=== PATIENT | female | born 1995 | race Caucasian/White ===

== ENCOUNTER → 2019-01-12 08:32 | Outpatient (CLI) | payer BC, SELFPAY ==
[2019-01-11 16:35] VITALS: BMI 34.7
[2019-01-11 20:22] LABS: Chlamydia Trachomatis by PCR Negative (Negative); Neisserai gonorrhoeae by PCR Negative (Negative); Probe Check PASS; Sample Adequacy Control PASS; Specimen Processing Control PASS
[2019-01-17 12:20] LABS: HPV Reflexed? NOT INDICATED
== END ==
PROVIDERS: Visit Provider Obstetrics & Gynecology
DX: Z12.4 Encounter for screening for malignant neoplasm of cervix (principal); Z34.80 Encounter for supervision of other normal pregnancy, unspecified trimester
CPT/HCPCS: 87086; 87088; 87491; 87591; 88175; G0145

== ENCOUNTER → 2019-01-14 14:42 | Outpatient (CLI) | payer BC, SELFPAY ==
[2019-01-11 16:35] VITALS: BMI 34.7
--- NOTE | 2019-01-14 14:48 | US_ITS ---
STUDY: THYROID ULTRASOUND REASON FOR EXAM: Female, 23 years old. Thyromegaly TECHNIQUE: Ultrasound evaluation of the thyroid was performed with real-time and static berry-scale imaging. COMPARISON: None. FINDINGS: RIGHT LOBE: The right lobe of the thyroid gland measures 4.6 x 1.4 x 1.8 cm. There is a homogeneous echotexture. There are no demonstrated solid, cystic or complex lesions. LEFT LOBE: The left lobe of the thyroid gland measures 4.4 x 1.6 x 1.3 cm. There is a homogeneous echotexture. There are no demonstrated solid, cystic or complex lesions. ISTHMUS: The isthmus measures 0.3 cm. The regional lymph nodes are normal. US/Thyroid IMPRESSION: Enlarged thyroid gland. Electronically Signed: Rosalina Montoya MD at 16:04 EDT Tel , Service support ,
== END ==
PROVIDERS: Referring Provider Obstetrics & Gynecology; Visit Provider Obstetrics & Gynecology
DX: E01.0 Iodine-deficiency related diffuse (endemic) goiter (principal)
CPT/HCPCS: 76536

== ENCOUNTER → 2019-01-17 11:48 | Outpatient (CLI) | payer BC, SELFPAY ==
[2019-01-11 16:35] VITALS: BMI 34.7
[2019-01-17 12:15] LABS: Absolute Lymphocyte Count 1.45 X10^3/uL (0.83-4.51); Absolute Neutrophil Count 4.3 X10^3/uL (2.0-7.7); Basophil# 0.02 X10^3/uL; Basophil% 0.3 % (0-1); Eosinophil# 0.07 X10^3/uL; Eosinophils% 1.1 % (0-5); Hematocrit 38.1 % (37-47); Hemoglobin 12.4 g/dL (12.0-15.0); Lymphocyte # 1.45 X10^3/ul (4.0); Lymphocyte % 23.4 % (19-41); Mean Corp Hgb Conc 32.5 g/dL (32-36); Mean Corpuscular Hgb 30.5 pg (27.0-32.0); Mean Corpuscular Volume 93.8 fL (81-99); Mean Platelet Vol. 9.1 fl (6.2-12.0); Monocyte# 0.38 X10^3/uL; Monocyte% 6.1 % (0-10); NRBC Flagged by Analyzer 0 % (0-5); Neutrophil # 4.26 X10^3/uL (2.7-7.7); Neutrophil % 68.8 % (47-70); Platelet Count 245 K/mm3 (150-450); RBC Distribution Width CV 14.1 % (11.6-14.6); RBC Distribution Width SD 49.1 fl (35.1-43.9); Red Blood Count 4.06 M/mm3 (4.2-5.4); White Blood Count 6.2 K/mm3 (4.4-11.0)
[2019-01-17 12:45] LABS: Glucose Challenge Gest 1H 50g 83 mg/dL (70-140); T4 Free Direct 0.91 ng/dL (0.76-1.46); Thyroid Stim Hormone (TSH) 1.51 uIU/mL (0.358-3.74)
[2019-01-17 13:29] LABS: HIV - WCH Non-Reactive (Nonreactive); Rubella IgG 64.4 IU/mL
[2019-01-21 02:39] LABS: Rapid Plasmin Reagin (RPR) NONREACTIVE (NONREACTIVE)
== END ==
PROVIDERS: Referring Provider Obstetrics & Gynecology; Visit Provider Obstetrics & Gynecology
DX: O99.280 Endocrine, nutritional and metabolic diseases complicating pregnancy, unspecified trimester (principal); E01.0 Iodine-deficiency related diffuse (endemic) goiter; Z3A.00 Weeks of gestation of pregnancy not specified
CPT/HCPCS: 36415; 82950; 84439; 84443; 85025; 86592; 86703; 86762; 86850; 86900; 86901

== ENCOUNTER → 2019-02-07 14:57 | Outpatient (CLI) | payer BC, SELFPAY ==
[2019-02-07 14:44] VITALS: BMI 34.7
== END ==
PROVIDERS: Referring Provider Obstetrics & Gynecology; Visit Provider Obstetrics & Gynecology
DX: Z34.81 Encounter for supervision of other normal pregnancy, first trimester (principal)
CPT/HCPCS: 36415

== ENCOUNTER → 2019-03-09 13:32 | Outpatient (CLI) | payer BC, SELFPAY ==
[2019-03-09 13:11] VITALS: BMI 34.7
[2019-03-10 10:37] LABS: Hepatitis B Surface Antigen Non-Reactive (Nonreactive)
== END ==
PROVIDERS: Referring Provider Obstetrics & Gynecology; Visit Provider Obstetrics & Gynecology
DX: Z34.80 Encounter for supervision of other normal pregnancy, unspecified trimester (principal); Z36.9 Encounter for antenatal screening, unspecified
CPT/HCPCS: 36415; 87340

== ENCOUNTER 2019-05-03 11:22 | Outpatient (CLI) | payer BC, SELFPAY ==
[2019-04-06 14:13] VITALS: BMI 34.7
[2019-05-03 11:35] VITALS: BMI 42.0
[2019-05-03 12:00] LABS: Hematocrit 30.4 % (37-47); Hemoglobin 10.1 g/dL (12.0-15.0); Mean Corp Hgb Conc 33.2 g/dL (32-36); Mean Corpuscular Hgb 30.9 pg (27.0-32.0); Mean Platelet Vol. 9.1 fl (6.2-12.0); Platelet Count 221 K/mm3 (150-450); RBC Distribution Width CV 13.6 % (11.6-14.6); RBC Distribution Width SD 46.5 fl (35.1-43.9); Red Blood Count 3.27 M/mm3 (4.2-5.4); White Blood Count 7.2 K/mm3 (4.4-11.0)
[2019-05-03 12:11] LABS: Fibrinogen 562 mg/dl (203-444)
--- NOTE | 2019-05-06 09:21 | OB.TRI.PN ---
Progress Notes Date of Service: 05/03/19 Progress Note: patient pinned by cow at home, no fall, minimal trauma no pain, no ctx no vb good fm. fht present and toco no contractions a/p abdominal trauma dc home labor and kick count precautions Laboratory Studies: Laboratory Tests 05/03/19 05/03/19 Range/Units 11:45 11:45 WBC 7.2 (4.4-11.0) K/mm3 RBC 3.27 L (4.2-5.4) M/mm3 Hgb 10.1 L (12.0-15.0) g/dL Hct 30.4 L (37-47) % MCV 93.0 (81-99) fL MCH 30.9 (27.0-32.0) pg MCHC 33.2 (32-36) g/dL RDW Std Deviation 46.5 H (35.1-43.9) fl RDW Coeff of Frandy 13.6 (11.6-14.6) % Plt Count 221 (150-450) K/mm3 MPV 9.1 (6.2-12.0) fl Fibrinogen 562 H (203-444) mg/dl Multi Select Codes - Urinary/Genital Urinary/Genital CPT Codes: Other Procedure See Report - no charge report visit
== END 2019-05-03 12:28 | disposition home or self-care (01) ==
LOC: WPOUT 11:27 → OBT 11:28
PROVIDERS: Referring Provider Obstetrics & Gynecology; Visit Provider Obstetrics & Gynecology
DX: O9A.219 Injury, poisoning and certain other consequences of external causes complicating pregnancy, unspecified trimester (principal); S39.91XA Unspecified injury of abdomen, initial encounter; W23.0XXA Caught, crushed, jammed, or pinched between moving objects, initial encounter; Y93.K9 Activity, other involving animal care; Y92.9 Unspecified place or not applicable; Y99.9 Unspecified external cause status
CPT/HCPCS: 36415; 59025; 59050; 85027; 85384; 99218; G0378

== ENCOUNTER → 2019-06-01 11:52 | Outpatient (CLI) | payer BC, SELFPAY ==
[2019-06-01 11:29] VITALS: BMI 42.0
[2019-06-01 13:06] LABS: Absolute Lymphocyte Count 1.16 X10^3/uL (0.83-4.51); Basophil# 0.01 X10^3/uL; Basophil% 0.2 % (0-1); Eosinophil# 0.07 X10^3/uL; Eosinophils% 1.1 % (0-5); Hematocrit 32.4 % (37-47); Hemoglobin 10.5 g/dL (12.0-15.0); Lymphocyte # 1.16 X10^3/ul (4.0); Lymphocyte % 17.9 % (19-41); Mean Corp Hgb Conc 32.4 g/dL (32-36); Mean Corpuscular Hgb 30.1 pg (27.0-32.0); Mean Corpuscular Volume 92.8 fL (81-99); Mean Platelet Vol. 9.5 fl (6.2-12.0); Monocyte# 0.25 X10^3/uL; Monocyte% 3.9 % (0-10); NRBC Flagged by Analyzer 0 % (0-5); Neutrophil # 4.95 X10^3/uL (2.7-7.7); Neutrophil % 76.1 % (47-70); Platelet Count 239 K/mm3 (150-450); RBC Distribution Width CV 13.2 % (11.6-14.6); RBC Distribution Width SD 44.9 fl (35.1-43.9); Red Blood Count 3.49 M/mm3 (4.2-5.4); White Blood Count 6.5 K/mm3 (4.4-11.0)
[2019-06-01 13:18] LABS: Glucose Challenge Gest 1H 50g 118 mg/dL (70-140)
[2019-06-01 14:16] LABS: Hepatitis C Antibody Non-Reactive (Nonreactive)
== END ==
PROVIDERS: Referring Provider Nurse Practitioner Women's Health; Visit Provider Nurse Practitioner Women's Health
DX: Z34.80 Encounter for supervision of other normal pregnancy, unspecified trimester (principal)
CPT/HCPCS: 36415; 82950; 85025; 86803

== ENCOUNTER → 2019-07-19 | Outpatient (CLI) | payer BC, SELFPAY ==
[2019-07-13 11:46] VITALS: BMI 42.0
--- NOTE | 2019-07-19 14:01 | US_ITS ---
STUDY: SECOND AND THIRD TRIMESTER OBSTETRICAL ULTRASOUND - LIMITED REASON FOR EXAM: Female, 23 years old GROWTH -- UT SIZE/ DATE DISCREPANCY -- BACK PAIN, ANEMIA, OBESITY AFFECTING LMP: April 04, 2019. PRIOR ULTRASOUND: None. TECHNIQUE: Transabdominal TECHNICAL QUALITY: Adequate. FINDINGS: There is a single intrauterine fetus. The fetus is in a cephalic presentation. There is demonstrated cardiac activity with a heart rate of 146 bpm. There is a normal amniotic fluid volume. The largest amniotic fluid pocket measures 6.1 cm x 11 cm. The amniotic fluid index (MAIKOL) is 18.4 cm. The placenta is posterior in location and is not low lying. There are Grade 1 placental changes. The cervix was not assessed due to the head positioning. BIOMETRY: BPD: 8.76 cm: 35 weeks, 2 days HC: 32.1 cm: 37 weeks, 1 days AC: 33.8 cm: 37 weeks, 4 days FL: 6.96 cm: 35 weeks, 5 days Age by LMP: 35 weeks, 4 days. BETY by LMP: August 19, 2019. age by prior US: 36 weeks, 3 days. BETY by prior US: August 13, 2019. age by current US: 36 weeks, 5 days. BETY by current US: August 11, 2019. Estimated weight: 3065 grams, +/- 454 grams, 81 percentile. US/OB Limited With Biometrics IMPRESSION: Single live uterine gestation with a mean gestational age of 36 weeks and 3 days. Measurement today fall within normal expected range. Electronically Signed: Chadwick Hinton, at 15:50 EDT , Service support ,
== END | disposition home or self-care (01) ==
LOC: OPUS 14:01
PROVIDERS: Referring Provider Obstetrics & Gynecology; Visit Provider Obstetrics & Gynecology
DX: O26.849 Uterine size-date discrepancy, unspecified trimester (principal); Z3A.00 Weeks of gestation of pregnancy not specified
CPT/HCPCS: 76816

== ENCOUNTER → 2019-07-27 14:46 | Outpatient (CLI) | payer BC, SELFPAY ==
[2019-07-27 11:19] VITALS: BMI 42.0
== END ==
PROVIDERS: Referring Provider Obstetrics & Gynecology; Visit Provider Obstetrics & Gynecology
DX: Z34.93 Encounter for supervision of normal pregnancy, unspecified, third trimester (principal); Z3A.36 36 weeks gestation of pregnancy
CPT/HCPCS: 87081

== ENCOUNTER 2019-08-05 10:00 | Outpatient (CLI) | payer BC, SELFPAY ==
[2019-08-03 11:31] VITALS: BMI 42.0
[2019-08-05 10:13] VITALS: TEMP 37; O2SAT 100
[2019-08-05 10:16] VITALS: BP 107/63; PULSE 90
[2019-08-05 10:23] VITALS: BMI 46.6
--- NOTE | 2019-08-06 07:32 | OB.TRI.PN ---
Progress Notes Date of Service: 08/05/19 Progress Note: false labor cat I tracing fht 130 moderate variability reactive no decels toco irregular ctx false labor dc home reactive nst labor precautions Multi Select Codes - Urinary/Genital Urinary/Genital CPT Codes: 40552-93 non-stress test Interp
== END 2019-08-05 11:15 | disposition home or self-care (01) ==
LOC: WPOUT 10:07 → OBT 10:08
PROVIDERS: Referring Provider Obstetrics & Gynecology; Visit Provider Obstetrics & Gynecology
DX: O47.9 False labor, unspecified (principal); Z3A.00 Weeks of gestation of pregnancy not specified
CPT/HCPCS: 59025; 99218; G0378

== ENCOUNTER 2019-08-10 21:45 | Outpatient (CLI) | payer BC, SELFPAY ==
[2019-08-10 14:29] VITALS: BMI 46.6
[2019-08-10 22:09] VITALS: BP 116/71; PULSE 80; PULSE 90; TEMP 36.6; O2SAT 82; O2SAT 98
[2019-08-10 22:16] VITALS: BMI 47.0
--- NOTE | 2019-08-11 17:03 | OB.TRI.PN ---
Progress Notes Date of Service: 08/10/19 Progress Note: seen for false labor no cervical change fht 140 moderate variability cat I tracing no decels toco irregular ctx Multi Select Codes - Urinary/Genital Urinary/Genital CPT Codes: 17331-83 non-stress test Interp
== END 2019-08-10 22:55 | disposition home or self-care (01) ==
LOC: WPOUT 21:52 → WP 21:52
PROVIDERS: Visit Provider Obstetrics & Gynecology
DX: O47.9 False labor, unspecified (principal); Z3A.00 Weeks of gestation of pregnancy not specified
CPT/HCPCS: 59025; 59050; 99218; G0378

== ENCOUNTER 2019-08-12 19:50 | Inpatient (IN) | payer BC, SELFPAY ==
[2019-08-12] VITALS (7 sets, daily range): BP systolic 112–120; BP diastolic 58–66; PULSE 67–89; TEMP 36.3–36.6; O2SAT 98–99; BMI 47.4
[2019-08-12] MEDS: Lactated Ringers 1,000 ML 50 ML IV (20:30)
[2019-08-12 20:47] LABS: Absolute Lymphocyte Count 1.52 X10^3/uL (0.83-4.51); Absolute Neutrophil Count 5.5 X10^3/uL (2.0-7.7); Basophil# 0.01 X10^3/uL; Basophil% 0.1 % (0-1); Eosinophil# 0.15 X10^3/uL; Hematocrit 30.2 % (37-47); Hemoglobin 9.6 g/dL (12.0-15.0); Lymphocyte # 1.52 X10^3/ul (4.0); Lymphocyte % 20.2 % (19-41); Mean Corp Hgb Conc 31.8 g/dL (32-36); Mean Corpuscular Hgb 27.5 pg (27.0-32.0); Mean Corpuscular Volume 86.5 fL (81-99); Mean Platelet Vol. 10.2 fl (6.2-12.0); Monocyte# 0.33 X10^3/uL; Monocyte% 4.4 % (0-10); NRBC Flagged by Analyzer 0 % (0-5); Neutrophil # 5.47 X10^3/uL (2.7-7.7); Neutrophil % 72.9 % (47-70); POSITIVE MORPHOLOGY YES; Platelet Count 215 K/mm3 (150-450); RBC Distribution Width SD 43.7 fl (35.1-43.9); Red Blood Count 3.49 M/mm3 (4.2-5.4); White Blood Count 7.5 K/mm3 (4.4-11.0)
[2019-08-12 20:53] LABS: Differential Indicated SCAN CRITERIA MET
[2019-08-12] MEDS: Oxytocin 30 units/NS 500 ml 30 UNITS/500 ML IV.SOLN IV (21:00)
[2019-08-12 21:17] LABS: Differential Comment SCANNED; Ovalocyte RARE; Platelet Estimate ADEQUATE (ADEQ)
[2019-08-13] VITALS (44 sets, daily range): BP systolic 86–116; BP diastolic 52–79; PULSE 50–139; RESP 16; TEMP 36.1–36.9; O2SAT 98–100
[2019-08-13] MEDS: Lactated Ringers 1,000 ML 200 ML IV (01:20)
[2019-08-13] MEDS: Lactated Ringers 500 ML 999 ML IV (01:26)
[2019-08-13] MEDS: fentaNYL-bupivacaine (epidural) 100 ML BAG EPIDURAL (02:20)
[2019-08-13] MEDS: Ondansetron 4 MG/2 ML Vial IV (02:31)
--- NOTE | 2019-08-13 05:08 | HP.PCM_ITS ---
- Problem List (1) Contraception management Status: Acute Comment: nexplanon 6 wk pp(had previously) (2) Back pain affecting Status: Acute Qualifiers: Comment: chiropractor, rx flexeril. Declines PT (3) Anemia affecting Status: Acute Qualifiers: Comment: Iron QD (4) Influenza vaccination declined Status: Acute Comment: declined on 02/07/19 (5) Thyromegaly Status: Acute Comment: us no nodules, PCP fu and labs wnl (6) Obesity affecting Status: Acute Qualifiers: Comment: encouraged healthy weight gain (7) Supervision of other normal Status: Acute Comment: PRR gender surprise PC: Eric BETY: 08/19/19 Spouse: Federico (8) Status: Acute Qualifiers: Comment: Genetic-low risk. AFP negative; Declines carrier, normal anatomy History Date of Admission: 08/12/19 Final BETY: 08/19/19 Gestational age: 39 Weeks and 1 Days History of this : This is a 23 year-old, at 39 weeks gestational age presents for IOL secondary to obesity. she denies any vaginal bleeding or loss of fluid, has had irregular contractions and has been 4 cm dilated. Medical History: Medical History (Last Reviewed 08/10/19 @ 14:29 by Sue Conley) No pertinent past medical history Z78.9 Surgical History: Surgical History (Last Reviewed 08/10/19 @ 14:29 by Sue Conley) H/O wisdom tooth extraction K08.409 History of ankle surgery Z98.890 History of appendectomy Z90.49 Allergies No Known Allergies Allergy (Verified 08/12/19 21:23) Home Medications: Home Medications multivitamin no.47-iron fum 27 mg-folate no.1 1 mg-dha 300 mg capsule 1 cap PO DAILY cap 01/11/19 Smoking Status: Never smoker Alcohol: None Number of Fetus(es): 1 NST - FHR Rate Baby A Baseline: 130 Variability:: Moderate Accelerations:: 15 x 15 Decelerations:: None NST Reactive:: Yes FHR Category:: Category I Uterine Activity:: irregular History Past Pregnancies: Past Pregnancies previous term uncomplicated Labs: Mom's Labs & Results 08/12/19 08/12/19 20:34 20:34 WBC 7.5 RBC 3.49 L Hgb 9.6 L Hct 30.2 L MCV 86.5 MCH 27.5 MCHC 31.8 L RDW Std Deviation 43.7 RDW Coeff of Frandy 14.0 Plt Count 215 MPV 10.2 Immature Gran % (Auto) 0.400 Neut % (Auto) 72.9 H Lymph % (Auto) 20.2 Clinch % (Auto) 4.4 Eos % (Auto) 2.0 Baso % (Auto) 0.1 Absolute Neuts (auto) 5.5 Absolute Lymphs (auto) 1.52 Nucleated RBC % 0 Differential Comment SCANNED Platelet Estimate ADEQUATE Ovalocytes RARE Blood Type A POSITIVE Antibody Screen NEGATIVE Course Did the patient receive Yes care? Labs RH: POSITIVE RPR/VDRL/Syphilis Nonreactive Rubella status Immune HbSAg Negative Date Done: 03/19/19 Chlamydia Negative Gonorrhea Negative HIV/AIDS Non-Reactive Group B Strep: Negative Current Obstetrical History Gestational Diabetes No Incompetent Cervix No Infertility No IUGR No Macrosomia No Hypertension/Pre-eclampsia No Placenta Previa/Abruption No PTL/PROM No Uterine anomaly No Oligohydramnios No Polyhydramnios No Multiple gestation No Past Medical History Asthma No Diabetes No Hypertension No Heart disease No Mitral valve prolapse No Neurologic/Seizure disorder/ No Migraines Kidney disease No Liver disease No Varicosities No Clotting disorders/Hx of DVT No Thyroid Dysfunction No Other medical diseases No Psychiatric disorders No Major trauma No Abnormal PAP smear No Sleep apnea No Mammogram in the last 2 years No Social History Marital Status: Alleged father Federico Tang Hx Smoking No Smoking Status Never smoker Expected Delivery Method: Spontaneous Vaginal Review of Systems Constitutional: Denies: Fever, Malaise Eyes: Denies: Blurred vision, Vision Change HEENT: Denies: Head Aches, Visual Changes Cardiovascular: Denies: Chest Pain, Palpitations Respiratory: Denies: Cough, Shortness of Breath, Wheezing Gastrointestinal: Denies: Abdominal Pain, Diarrhea, Nausea, Vomiting Genitourinary: Denies: Dysuria, Hematuria Musculoskeletal: Denies: Joint Pain, Muscle pain Skin: Denies: Lesions, Rash Neurological: Denies: Blurred vision, Focal weakness, Headaches Psychiatric: Denies: Anxiety, Depression Endocrine: Denies: Heat/ Cold Intolerance Hematologic/ Lymphatic: Denies: Easy Bruising, Easy Bleeding Physical Exam Vitals: Vital Signs Temp Pulse BP Pulse Ox 97.1 F L 68 102/62 100 08/13/19 04:55 08/13/19 04:55 08/13/19 04:54 08/13/19 04:55 General: Alert, Cooperative, No apparent distress HEENT: Atraumatic, Normocephalic. Negative for: Thyromegaly, Lymphadenopathy Cardiovascular: Regular rate Lungs: Normal air movement Abdomen: Soft, Non Tender, Gravid Neurological: Deep Tendon Reflexes 2+/4 and Symmetrical, Neuro grossly intact. Negative for: Clonus PROJECT MANAGEMENT SPECIALIST: Normal external genitalia. Negative for: Vulvar lesions Estimated gestational size: Appropriate for gestational size Presentation: Cephalic Cervix Dilation (cm): 4 Station: -1 Effacement (%): 80 Assessment/Plan All Active Problems (Last Reviewed 08/10/19 @ 14:29 by Sue Conley) Contraception management (Acute) Back pain affecting (Acute) Anemia affecting (Acute) Influenza vaccination declined (Acute) Thyromegaly (Acute) Obesity affecting (Acute) Supervision of other normal (Acute) (Acute) This is a 23 year-old, at 39 weeks gestational age presents for IOL secondary to obesity plan pitocin IOL srom clear fluid epidural gbs neg.
[2019-08-13] MEDS: Oxytocin 30 units/NS 500 ml 30 UNITS/500 ML IV.SOLN 334 UNITS IV (06:20)
--- NOTE | 2019-08-13 06:24 | PCM.OPRPT ---
Problem List (1) Contraception management Status: Acute Comment: nexplanon 6 wk pp(had previously) (2) Back pain affecting Status: Acute Qualifiers: Comment: chiropractor, rx flexeril. Declines PT (3) Anemia affecting Status: Acute Qualifiers: Comment: Iron QD (4) Influenza vaccination declined Status: Acute Comment: declined on 02/07/19 (5) Thyromegaly Status: Acute Comment: us no nodules, PCP fu and labs wnl (6) Obesity affecting Status: Acute Qualifiers: Comment: encouraged healthy weight gain (7) Supervision of other normal Status: Acute Comment: PRR gender surprise PC: Eric BETY: 08/19/19 Spouse: Federico (8) Status: Acute Qualifiers: Comment: Genetic-low risk. AFP negative; Declines carrier, normal anatomy Vaginal Delivery Maternal Presentation: Medically Indicated Induction iol obesity Method of Induction: Pitocin Amniotic Membrane Rupture Type: Spontaneous Amniotic Fluid Description: Clear Final BETY: 08/19/19 Gestational age: 39 Weeks and 1 Days Date of Procedure: 08/13/19 Pre-Operative Diagnosis: iol obesity Post-Operative Diagnosis: same Surgery/ Procedure Performed: Spontaneous Vaginal Delivery Type of Anesthesia: Epidural Description of Procedure: Patient began pushing and delivered the head in the ABNER presentation. The head was delivered atraumatically. The anterior and posterior shoulders delivered without complication followed by the rest of the infant and the infant was placed on the maternal abdomen. Delayed cord clamping was employed for approximately 60 seconds. Cord was clamped and cut and gentle traction was applied to the cord and the placenta delivered spontaneously immediately following it was noted to be intact with three-vessel cord. The perineum and vagina were inspected and noted to have no laceration. EBL was 100 cc. Patient and infant tolerated delivery well. Presentation: ABNER Placental Delivery Description: Spontaneous Cord Entanglement: None Estimated Blood Loss: 100 Infant A gender: Male (1 minute): 8 (5 minute): 9 Episiotomy Description: None Laceration: None Medications given after delivery: IV Pitocin Complications: None Multi Select Codes - Urinary/Genital Urinary/Genital CPT Codes: 43188 Vaginal Delivery [facility]
[2019-08-13] MEDS: Acetaminophen 500 MG Tablet 1000 MG PO ×2 (07:38→16:36)
[2019-08-13] MEDS: Naproxen 250 MG Tablet 500 MG PO (23:20)
[2019-08-14 04:00] VITALS: BP 107/61; PULSE 68; RESP 16; TEMP 36.7
[2019-08-14] MEDS: Etonogestrel 68 MG IMPLANT SQ (06:42)
--- NOTE | 2019-08-14 06:48 | NURSING ---
Nexplanon inserted to [facility] per Dr Allen. Patient signed consent and tolerated procedure well. Discussing discharge at this time. Tyler Ruggiero RN at bedside
[2019-08-14] MEDS: Prenatal Vits Tablet 1 TABLET PO (07:43)
[2019-08-14] MEDS: Naproxen 250 MG Tablet 500 MG PO (07:43)
[2019-08-14 07:45] VITALS: BP 102/55; PULSE 60; RESP 18; TEMP 36.6; O2SAT 98
--- NOTE | 2019-08-14 11:05 | PCM.PN.OB ---
Subjective: doing well no complaints pain controlled no CP SOB N V ambulating well tolerating po lochia moderate, going well - Physical Exam Vitals/I&O's: Vital Signs Temp Pulse Resp BP Pulse Ox 97.8 F 60 18 102/55 L 98 08/14/19 07:45 08/14/19 07:45 08/14/19 07:45 08/14/19 07:45 08/14/19 07:45 Oxygen Delivery Method Room Air Weight: 294 lb Body Mass Index (BMI) 47.4 Intake and Output for Last 24 Hours 08/12/19 08/13/19 08/14/19 23:59 23:59 23:59 Intake Total 99.11 / 99.11 2701.67 / 2701.67 Output Total 1150 / 1150 Balance 99.11 / -100.89 1551.67 / 1551.67 Current Medications Acetaminophen (Tylenol) 1,000 mg PO Q8H PRN PRN PRN Reason: Pain Score 1-3/10 Last Admin: 08/13/19 16:36 Dose: 1,000 mg Documented by: Bisacodyl (Dulcolax) 10 mg RECTAL UD PRN PRN Reason: If no BM Dibucaine (Dibucaine) 1 applic TOPICAL TID PRN PRN; Protocol PRN Reason: Discomfort Hydrocortisone (Hytone) 1 applic TOPICAL TID PRN PRN; Protocol PRN Reason: Discomfort Methylergonovine Maleate (Methergine) 0.2 mg IM X1 PRN PRN Reason: Excess bleeding/uterine atony Naproxen (Naprosyn) 500 mg PO Q8H PRN PRN PRN Reason: Pain Score 1-3/10 Last Admin: 08/14/19 07:43 Dose: 500 mg Documented by: Ondansetron HCl (Zofran) 4 mg IV Q4H PRN PRN PRN Reason: Nausea Oxycodone HCl (Oxyir) 5 - 10 mg PO Q4H PRN PRN PRN Reason: Pain Score 4-10/10 Multivit/Folic Acid/Iron (Prenatabs Fa) 1 tablet PO DAILY@1200 DOMONIQUE Last Admin: 08/14/19 07:43 Dose: 1 tablet Documented by: Senna/Docusate Sodium (Senokot-S, Elise-Colace) 1 - 2 tablet PO DAILY PRN PRN PRN Reason: Constipation Simethicone (Mylicon) 80 mg PO PCHS PRN PRN Reason: Indigestion/Stomach pain Sodium Chloride () 5 - 15 ml IV UD PRN PRN Reason: SALINE FLUSH Medical Necessity - Tobacco Use Smoking Status: Never smoker Assessment/Plan All Active Problems (Last Reviewed 08/10/19 @ 14:29 by Sue Conley) Contraception management (Acute) Back pain affecting (Acute) Anemia affecting (Acute) Influenza vaccination declined (Acute) Thyromegaly (Acute) Obesity affecting (Acute) Supervision of other normal (Acute) (Acute) dc home ppd 1
--- NOTE | 2019-08-14 11:06 | DCINST_ITS ---
Discharge Diet: No Restrictions Discharge Activity: Return to Normal Activity, May not drive while taking narcotic pain medications., May Shower May resume sexual activity in: 4-6 weeks Call your doctor if your incision/area has: Continuous Slow Oozing, Sudden Increased Bleeding, Increased Pain/ Swelling, Increased Redness, Foul Smelling Discharge Additional Instructions: If you experience any of the following, contact your healthcare provider. * Bleeding that soaks a pad every hour for 2 hours * Fever 100.4 or higher * Unrelieved incision or abdominal pain * Swelling, redness, discharge or bleeding from your incision or episiotomy site * Your incision begins to separate * Problems urinating (including inability to urinate or burning while urinating). * Visual changes * Severe headache * Flu-like symptoms * Pain or redness in one of both of your breasts * Pain, warmth, tenderness or swelling in your legs, especially the calf area * Frequent nausea and vomiting * Symptoms of depression or anxiety If you experience any of the following, call 911 or go to the nearest Emergency Room. * Chest pain * Problems breathing * Seizure activity * Partial or complete paralysis of a body part, slurred speech, weakness or drooping of the face, or a sudden inability to walk or hold your balance Allergies/Adverse Reactions: Allergies No Known Allergies Allergy (Verified 08/12/19 21:23) Medications to take at Discharge multivitamin no.47-iron fum 27 mg-folate no.1 1 mg-dha 300 mg capsule 1 cap PO DAILY cap 01/11/19 Please Follow Up With: Mckenna Allen MD - [phone] When: Call to make an appointment with your doctor in 6 weeks. If you had elevated Blood pressure or 4th degree laceration you will need to be seen in 2 weeks. Primary Care Physician: Care Physician,No Primary [Primary Care Provider] - Test Results: Test results from this visit will be discussed in further detail at your follow- up appointment, if applicable.
--- NOTE | 2019-08-14 11:06 | PCM.DCVAG ---
Discharge Diet: No Restrictions Discharge Activity: Return to Normal Activity, May not drive while taking narcotic pain medications., May Shower May resume sexual activity in: 4-6 weeks Call your doctor if your incision/area has: Continuous Slow Oozing, Sudden Increased Bleeding, Increased Pain/ Swelling, Increased Redness, Foul Smelling Discharge Additional Instructions: If you experience any of the following, contact your healthcare provider. Bleeding that soaks a pad every hour for 2 hours Fever 100.4 or higher Unrelieved incision or abdominal pain Swelling, redness, discharge or bleeding from your incision or episiotomy site Your incision begins to separate Problems urinating (including inability to urinate or burning while urinating). Visual changes Severe headache Flu-like symptoms Pain or redness in one of both of your breasts Pain, warmth, tenderness or swelling in your legs, especially the calf area Frequent nausea and vomiting Symptoms of depression or anxiety If you experience any of the following, call 911 or go to the nearest Emergency Room. Chest pain Problems breathing Seizure activity Partial or complete paralysis of a body part, slurred speech, weakness or drooping of the face, or a sudden inability to walk or hold your balance Allergies/Adverse Reactions: Allergies No Known Allergies Allergy (Verified 08/12/19 21:23) Medications to take at Discharge multivitamin no.47-iron fum 27 mg-folate no.1 1 mg-dha 300 mg capsule 1 cap PO DAILY cap 01/11/19 Please Follow Up With: Mckenna Allen MD - [phone] When: Call to make an appointment with your doctor in 6 weeks. If you had elevated Blood pressure or 4th degree laceration you will need to be seen in 2 weeks. Primary Care Physician: Care Physician,No Primary [Primary Care Provider] - Test Results: Test results from this visit will be discussed in further detail at your follow-up appointment, if applicable.
--- NOTE | 2019-08-14 11:07 | PCM.OPRPT ---
Problem List (1) Contraception management Status: Acute Comment: nexplanon 6 wk pp(had previously) (2) Back pain affecting Status: Acute Qualifiers: Comment: chiropractor, rx flexeril. Declines PT (3) Anemia affecting Status: Acute Qualifiers: Comment: Iron QD (4) Influenza vaccination declined Status: Acute Comment: declined on 02/07/19 (5) Thyromegaly Status: Acute Comment: us no nodules, PCP fu and labs wnl (6) Obesity affecting Status: Acute Qualifiers: Comment: encouraged healthy weight gain (7) Supervision of other normal Status: Acute Comment: PRR gender surprise PC: Eric BETY: 08/19/19 Spouse: Federico (8) Status: Acute Qualifiers: Comment: Genetic-low risk. AFP negative; Declines carrier, normal anatomy Report of Operation Date of Procedure: 08/14/19 Pre-Operative Diagnosis: nexplanon desired Post-Operative Diagnosis: same Surgery/Procedure Performed:: nexplanon insertion Type of Anesthesia:: Local Description of Procedure: left arm prepped with betadine and area measured and injected with local lidocaine, incision made and nexplanon device inserted and deployed without complications. steri strip and compression bandage applied. Grafts/Implants Used: nexplanon Multi Select Codes - Urinary/Genital Urinary/Genital CPT Codes: Other Procedure See Report - nexplanon insertion [id number]
[2019-08-14 13:32] VITALS: BP 103/62; PULSE 72; RESP 18; TEMP 36.4; O2SAT 98
== END 2019-08-14 13:40 | disposition home or self-care (01) | DRG 807 ==
PROVIDERS: Admitting Provider Obstetrics & Gynecology; Visit Provider Obstetrics & Gynecology
DX: O99.214 Obesity complicating childbirth (principal); Z37.0 Single live birth; E66.9 Obesity, unspecified; Z30.017 Encounter for initial prescription of implantable subdermal contraceptive; O99.02 Anemia complicating childbirth; D64.9 Anemia, unspecified; Z3A.39 39 weeks gestation of pregnancy
CPT/HCPCS: 59025; 59050; 85025; 86850; 86900; 86901; 99218; J7120; G0378; J2405